=== PATIENT | female | born 1955 | race Two or more races ===

== ENCOUNTER 2025-07-27 08:28 | Emergency (ER) | payer OTHER ==
[~2025-07-27] VITALS: Ht 162.6 cm; Wt 81.6 kg
[2025-07-27] MEDS ORDERED: ZETIA10 MG (08:58)
[2025-07-27] MEDS ORDERED: SYNTHROID75 MCG (08:58)
[2025-07-27] MEDS ORDERED: ANASTROZOLE1 MG (08:59)
[2025-07-27] MEDS ORDERED: ORPHENADRINE CITRATE 30 MG/ML AMPUL IM STA (09:18)
[2025-07-27] MEDS ORDERED: DEXAMETHASONE SODIUM PHOSPHATE 4 MG/ML VIAL IM STA (09:18)
[2025-07-27] MEDS ORDERED: KETOROLAC TROMETHAMINE 30 MG VIAL IM STA (09:19)
[2025-07-27] MEDS ORDERED: MEDROLPACK PO (12:06)
== END 2025-07-27 12:26 | disposition home or self-care (01) ==
LOC: ER 08:28
DX: M25.511 Pain in right shoulder (principal); I10 Essential (primary) hypertension; E78.49 Other hyperlipidemia; Z85.3 Personal history of malignant neoplasm of breast; T73.3XXA Exhaustion due to excessive exertion, initial encounter; M75.51 Bursitis of right shoulder
CPT/HCPCS: 73030; 96365; 99283; J1100; J1885; J2360